=== PATIENT | female | born 2000 | race Caucasian/White ===

== ENCOUNTER → 2023-01-19 | Outpatient (CLI) | payer BC, SELFPAY ==
[2023-01-19 15:11] LABS: Absolute Lymphocyte Count 0.93 X10^3/uL (0.83-4.51); Absolute Neutrophil Count 4.9 X10^3/uL (2.0-7.7); Basophil# 0.04 X10^3/uL; Basophil% 0.6 % (0-1); Eosinophil# 0.03 X10^3/uL; Eosinophils% 0.5 % (0-5); Hematocrit 43.4 % (37-47); Hemoglobin 14.1 g/dL (12.0-15.0); Lymphocyte # 0.93 X10^3/ul (0.83-4.51); Lymphocyte % 14.7 % (19-41); Mean Corp Hgb Conc 32.5 g/dL (32-36); Mean Corpuscular Hgb 29.6 pg (27.0-32.0); Mean Platelet Vol. 13.7 fl (6.2-12.0); Monocyte# 0.43 X10^3/uL; Monocyte% 6.8 % (0-10); NRBC Flagged by Analyzer 0 % (0-5); Neutrophil # 4.87 X10^3/uL (2.7-7.7); Neutrophil % 77.1 % (47-70); Platelet Count 240 K/mm3 (150-450); RBC Distribution Width CV 11.9 % (11.6-14.6); RBC Distribution Width SD 39.8 fl (35.1-43.9); Red Blood Count 4.77 M/mm3 (4.2-5.4); White Blood Count 6.3 K/mm3 (4.4-11.0)
[2023-01-19 15:32] LABS: ALB/GLOB Ratio 0.7 RATIO (0.9-2.4); AST(SGOT) 15 U/L (15-37); Alanine Aminotransfer ALT/SGPT 15 U/L (13-56); Albumin, Serum 3.4 g/dL (3.2-5.0); Alkaline Phosphatase 57 U/L (45-117); Anion Gap 7 (5-15); BUN 12 mg/dL (7-18); BUN/Creat Ratio 13.9 RATIO (10-20); Calcium,Total 9.3 mg/dL (8.5-10.1); Chloride 106 mmol/L (98-107); Creatinine, Serum 0.86 mg/dL (0.55-1.02); EST Glomerular Filtration Rate 87 mL/min (>60); Est Glom Filt Rate - Afr Amer 105 mL/min (>60); Globulin 4.6 g/dL (2.2-4.2); Glucose 92 mg/dL (74-106); Potassium 4.3 mmol/L (3.5-5.1); Sodium Level 137 mmol/L (136-145)
[2023-01-19 15:38] LABS: Vitamin D,25 Hydroxy 40.2 ng/mL
== END | disposition home or self-care (01) ==
LOC: BIMLAB 13:08
PROVIDERS: PCP Internal Medicine; Referring Provider Internal Medicine; Visit Provider Internal Medicine
DX: Z00.00 Encounter for general adult medical examination without abnormal findings (principal); E55.9 Vitamin D deficiency, unspecified
CPT/HCPCS: 36415; 80053; 82306; 85025